=== PATIENT | male | born 1970 | race Caucasian/White ===

== ENCOUNTER 2025-06-30 16:09 | Inpatient (IN) | payer MEDICAID ==
[~2025-06-30] VITALS: Ht 182.9 cm; Wt 81.8 kg
--- NOTE | 2025-06-30 16:32 | Physician Documentation ---
History of Present Illness ~ Chief Complaint: ETOH Stated Complaint: TRANSFER Time Seen by MD: 16:12 HPI 54-year-old male presented to the ED via [facility] transfer for aphasia, ETOH withdrawal and reported seizures. Patient was evaluated at [facility] and liver enzymes were mostly normal troponin levels were negative and he was given phenobarbital.and scanned Patient also presented with flush blood shot eyes and was speaking gibberish and unable to identify plan himself or answer questions appropriately. He Was fully evaluated secondary to his initial presentation for stroke like symptoms, however in the neurologist believes the patient is likely having seizures or partial seizures related to AUD. Neurologist indicated that the patient meets criteria for EEG and MRI hence the transfer and higher level of care Medication Reconciliation Allergies: Coded Allergies: No Known Allergies (Unverified , 06/30/25) Review of Systems All Other Systems at this time: Reviewed and Negative ROS As stated above in the HPI, otherwise all systems are reviewed and negative. Physical Exam Vital Signs: Temperature: 97.9, Heart Rate: 118, Respiratory Rate: 22, BP: 156/94, Pulse Oximetry: 94, Weight: 81.820 Oxygen Flow Rate: 0 Physical Exam General: Alert, no apparent distress. Slurred speech HEENT: PERRL, EOMI, no injection, moist mucous membranes. Scleral in the left is injected Respiratory: Lungs clear, no respiratory distress. Cardiovascular: tachycsardic notral rhythm, no murmurs. Gastrointestinal: Soft, nontender, nondistended. Bowels sounds present. Neurologic: Oriented x4. Psychiatric: Normal mood and affect. Skin: Normal color, warm and dry. No edema, no ecchymosis. Face appears flushed Progress Results/Orders Results/Orders Orders - DELFINO ALAS BRAND EXECUTIVE * Vital Signs Routine* (06/30/25 16:23) * Activity * (06/30/25 16:23) * Implement/Maintain Seizure P (06/30/25 16:23) Environmental Studies Program Director (06/30/25 16:23) Pt Eval & Treat (06/30/25 16:23) CMP (07/01/25 03:00) CMP (07/02/25 03:00) CMP (07/03/25 03:00) CMP (07/04/25 03:00) CMP (07/05/25 03:00) Cbc/Diff (07/01/25 03:00) Cbc/Diff (07/02/25 03:00) Cbc/Diff (07/03/25 03:00) Cbc/Diff (07/04/25 03:00) Cbc/Diff (07/05/25 03:00) Pt Inr (07/01/25 03:00) Pt Inr (07/02/25 03:00) Pt Inr (07/03/25 03:00) Pt Inr (07/04/25 03:00) Pt Inr (07/05/25 03:00) PHOS (07/01/25 03:00) PHOS (07/02/25 03:00) PHOS (07/03/25 03:00) PHOS (07/04/25 03:00) PHOS (07/05/25 03:00) MG (07/01/25 03:00) MG (07/02/25 03:00) MG (07/03/25 03:00) MG (07/04/25 03:00) MG (07/05/25 03:00) Saline Lock (06/30/25 16:23) * Withdrawal Tx/Call Md If:* (06/30/25 16:23) Lipase (07/01/25 03:00) Lipase (07/02/25 03:00) Lipase (07/03/25 03:00) Lipase (07/04/25 03:00) Lipase (07/05/25 03:00) Direct Bili (07/01/25 03:00) Direct Bili (07/02/25 03:00) Direct Bili (07/03/25 03:00) Direct Bili (07/04/25 03:00) Direct Bili (07/05/25 03:00) * Verify Ciwa Scoring* (06/30/25 16:23) Chlordiazepoxide Capsule (Librium Capsul (06/30/25 20:00) Thiamine Inj. (Thiamine Inj.) (06/30/25 21:00) Folic Acid Inj. (Folic Acid Inj.) (06/30/25 16:25) Page Hospitalist (06/30/25 ) Phenobarbital (06/30/25 16:43) Completed Orders - EVETTE,DELFINO H BRAND EXECUTIVE Phenobarbital Inj (Phenobarbital Inj.) (06/30/25 16:25) Ammonia (06/30/25 16:44) Normal Saline 1000ml (0.9% Sodium Chlori (06/30/25 17:00) Medications Received in ER Medications (Trade) Dose Ordered Sig/Greta Route PRN Reason Start Time Stop Time Status Last Admin Dose Admin (folic acid inj.) 1 mg NOW IV 06/30/25 16:25 07/03/25 16:24 06/30/25 16:52 1 MG (0.9% sodium chloride (NS) 1000ml IV soln) 1,000 ml ONCE ONCE IVB 06/30/25 17:00 06/30/25 17:01 DC 06/30/25 17:58 1,000 ML (Valium inj) 10 mg Q2H PRN IV alcohol withdrawal 06/30/25 17:15 06/30/25 19:29 10 MG Vital Signs 06/30/25 06/30/25 06/30/25 16:18 16:33 16:34 Temp 97.9 97.9 Pulse 118 117 Resp 22 24 B/P (MAP) 156/94 155/87 (109) Pulse Ox 94 97 O2 Flow Rate 0 0 Laboratory Tests Test 06/30/25 16:56 Ammonia 14 Medical Decision Making Findings The patient meets criteria for further evaluation including EEG and MRI. I suspect his blood shot eyes or secondary to ongoing vomiting as he has been unable to keep anything down prior to his arrival at [facility]. Does have a history of traumatic brain injury and has had seizures related to alcohol use in the past. They were tonic-clonic in nature but he is not currently take taking any antiepileptics. States that the aphasia that started prior to arrival at [facility] ED 30 minutes prior to arrival The CT completed in [facility] indicated there was no signs of intracranial abnormalities. As discussed a neurology not think he was having a TIA or CVA. Did receive 130 mg of phenobarbital when he developed sudden onset aphasia prior to transfer he then received an additional 260 mg as the phenobarbital did not initially change his status Patient has been behaving appropriately although he does not appear impaired while in [facility] ED. Differential Dx:Considerations: Intoxication - ETOH, Intoxication - other drug, Sub. Abuse -continuous, Sub. Abuse-intermittent, Skull fracture, Fracture - other bone, Personality disorder, Closed head injury, Cervical spine injury, Abrasion, Confusion, Hematoma, Laceration, Foreign body, Dehydration, Encephalopathy, Hepatitis, Pancreatitis, Thiamine deficiency, Other Departure Disposition: 09 ADMITTED INPATIENT Impression: Primary Impression: Alcohol use disorder Additional Impression: Alcohol withdrawal syndrome Referrals: NO PRIMARY CARE PROVIDER (PCP) Signature Scribe Signature: u Attestation: Scribed for Delfino Alas Olive Grower by Delfino Garnett NP . 06/30/25 16:40 DELFINO ALAS NP Jun 30, 2025 16:31
[2025-06-30] MEDS: folic acid 1mg/0.2ml inj IV SCH (16:52)
[2025-06-30] MEDS ORDERED: mag hydrox/Alum hydrox/simeth 30ml oral suspension PO PRN (17:15)
[2025-06-30] MEDS ORDERED: magnesium sulf-water 2g/50mL 50 ML IV PRN (17:15)
[2025-06-30] MEDS ORDERED: magnesium hydroxide 30ml (MOM) UD suspension PO PRN (17:15)
[2025-06-30] MEDS ORDERED: potassium Cl 20 mEq SR tablet PO PRN (17:15)
[2025-06-30] MEDS ORDERED: potassium Cl 40MEQ/1/2NS 520ml 520 ML IV PRN (17:15)
[2025-06-30] MEDS ORDERED: magnesium sulf-water 4G/100mL 100 ML IV PRN (17:15)
[2025-06-30] MEDS ORDERED: ondansetron/PF 4mg/2ml inj IV PRN (17:15)
[2025-06-30] MEDS: normal saline 1000ML IV soln IVB ONE (17:58)
[2025-06-30] MEDS: diazepam inj 5 MG/ML inj. IV PRN (19:29)
[2025-06-30] MEDS: K and/or MAG REPLACEMENT MC SCH (20:00)
[2025-06-30] MEDS: docusate sod 100mg capsule PO SCH (20:00)
--- NOTE | 2025-06-30 21:09 | HISTORY AND PHYSICAL ---
History & Physical Providers to CC ~ History of Present Illness Reason for Admit\Complaint: Alcohol withdrawal with encephalopathy History of Present Illness This is a 54-year-old male transferred from [facility] with reported expressive aphasia and alcohol withdrawal symptoms. A neurology consult has a occurred and recommended an MRI and an EEG. When I evaluated the patient in the ED he was alert and oriented denies experiencing a seizure. The patient does have subconjunctival hemorrhage of the left eye however is able to move his eye without any restriction. The patient is admitted with alcohol withdrawal protocol. Seizure precautions are ordered Allergies: Coded Allergies: No Known Allergies (Unverified , 06/30/25) Past Medical History Past Medical History Denies any chronic health conditions Past Surgical History Surgical History Comment No prior surgeries Family History Family History: FH: diabetes mellitus FATHER Past Social History Social History Comment Endorses occasionally smoking cigarettes, drinks (5-6) 24 oz beers most every day denies any illicit drug use. Full code status ROS ROS Gen. No acute distress alert and oriented HEENT left subconjunctival hemorrhage without any restriction of movement of the eye Lungs clear to ascultation bilaterally, no wheezes rales or rhonchi appreciated Heart normal sinus rhythm no murmurs rubs or clicks noted Abdomen soft nontender bowel sounds are normoactive Lower extremities no clubbing cyanosis, nor edema appreciated bilaterally Exam Vitals: Vital Signs Date Time Temp Pulse Resp B/P (MAP) Pulse Ox O2 Delivery O2 Flow Rate FiO2 06/30/25 21:01 97.9 94 13 141/91 (108) 99 0 Advance Care Planning Advanced Care plannin - 30 Minutes Problems: (1) Alcohol use disorder Additional Plan # toxic encephalopathy # expressive aphasia Likely secondary to alcohol intoxication Did follow the recommendations of Neurology from [facility] and a head MRI is ordered # alcohol use disorder # impending DTs EEGs ordered per Neurology recommendations On alcohol withdrawal protocol Telemetry monitoring is ordered #DVT prophylaxis: SCDs SQ Lovenox I spent a total of 16 minutes on reviewing various resuscitative measures/ ACP with the patient at the time of admission. The patient has decided on full code status Date of Service: Jun 30, 2025 Billing Provider: DANNY FITZPATRICK DO Common Visit Codes: [id number] INP/OBS CARE (HIGH) Secondary Visit Codes: 91244-[id number] CARE PLAN 30 MINUTES DANNY FITZPATRICK DO Jun 30, 2025 21:09
[2025-06-30 21:16] LABS: MEAN PLATELET VOLUME 8.3 FL (7.4-10.4); RED CELL DISTRIBUTION WIDTH 15.4 % (11.5-14.5)
[2025-06-30 21:29] LABS: CREATININE 0.92 MG/DL (0.60-1.10); TOTAL CARBON DIOXIDE 27.9 MMOL/L (24-32); eCRCL 101 ML/MIN; eGFR 86 ML/MIN
[2025-06-30] MEDS: enoxaparin 40mg/0.4ml syringe SQ SCH (21:40)
[2025-06-30] MEDS: thiamine 100mg/ml 2ml inj. IV SCH (21:41)
[2025-06-30 22:20] VITALS: BP 135/75; PULSE 91; RESP 14; TEMP 98.4; O2SAT 95
[2025-07-01] MEDS: potassium Cl 20 mEq SR tablet PO PRN (01:02)
[2025-07-01] MEDS ORDERED: NO HOME MEDS (03:23)
[2025-07-01 05:33] LABS: MEAN PLATELET VOLUME 9.1 FL (7.4-10.4); RED CELL DISTRIBUTION WIDTH 15.3 % (11.5-14.5)
[2025-07-01 05:36] LABS: INR 1.0 INR
[2025-07-01 05:40] LABS: CREATININE 0.93 MG/DL (0.60-1.10); PHOSPHORUS 2.8 MG/DL (2.3-4.5); TOTAL CARBON DIOXIDE 27.3 MMOL/L (24-32); eCRCL 100 ML/MIN; eGFR 85 ML/MIN
[2025-07-01 06:00] VITALS: BP 146/85; PULSE 96; RESP 18; TEMP 97.4; O2SAT 99
--- NOTE | 2025-07-01 13:37 | PROGRESS NOTE ---
Daily Progress Note Providers to CC ~ Antibiotic Timeout Antibiotic Ordered?: No Subjective No acute events overnight. Patient examined at bedside. No new complaints, not in acute distress. Patient denies chest pain, sob, palpitations, abdominal pain, n/v/d. Vss, labs notable for elevated t.bili and AST with wnl ALT and ALP. Objective Vital Signs Date Time Temp Pulse Resp B/P (MAP) Pulse Ox O2 Delivery O2 Flow Rate FiO2 07/01/25 08:19 24 07/01/25 06:00 97.4 96 146/85 (105) 99 Room Air 06/30/25 21:01 0 Result Diagram: 07/01/25 0144 07/01/25 0446 Coagulation Studies Laboratory Tests Test 07/01/25 04:46 Prothrombin Time 10.7 SECONDS (9.0-12.0) INR International Normalized Ratio 1.0 INR Coagulation Comments Problem\Assessment\Plan Problems/Diagnosis: (1) Alcohol use disorder Assessment & Plan Alcohol withdrawal Alcoholic hepatitis Chronic alcoholism Toxic encephalopathy Expressive aphasia Alcohol use disorder -INR 1.0, lipase wnl, ALP wnl -tapered dose Librium, thiamine, folic acid, seizure precautions, follow CT DVT/VTE Prophylaxis: Lovenox Code Status: Full Code Date of Service: Jul 01, 2025 Billing Provider: ALFREDO ALVARENGA Common Visit Codes: [id number] INP/OBS CARE(HIGH) ALFREDO ALVARENGA Jul 01, 2025 13:37
[2025-07-01] MEDS ORDERED: iohexol 300mg/ml 100ml inj. ONE (14:19)
--- NOTE | 2025-07-01 14:53 | RADIOLOGY REPORT ---
Exam: CT CT ABDOMEN PELVIS W/ IV CONTRAST History: transaminitis, elevated t.bili, alcohol abuse COMPARISON: None Technique: Multidetector spiral CT of the abdomen and pelvis was performed from lung bases to pubic symphysis. Intravenous contrast was administered during this examination. Portal venous imaging was obtained. Axial, coronal and sagittal multiplanar reformats were performed by the technologist on a separate workstation. Radiation Dose : 1. Abdomen/Pelvis: CTDIvol 12 mGy, DLP 689 mGy*cm. Findings: Lung Bases: Trace bilateral pleural effusions. Cardiomegaly. Liver: Hepatic steatosis. Hepatomegaly. Gallbladder and Biliary Tree: Unremarkable. Spleen: Unremarkable. Pancreas: The pancreas is normal in appearance without focal lesions or abnormal enhancement. Adrenal Glands: Unremarkable. Kidneys: No hydronephrosis. Bladder: Unremarkable. Bowel: The stomach is grossly normal in appearance. Small bowel and colon are normal in caliber and distribution. Mild colonic bowel wall thickening of the rectosigmoid colon and distal descending colon. The appendix is unremarkable. Ascites: Absent. Lymphadenopathy: No mesenteric, retroperitoneal or periportal lymphadenopathy. Abdominal Wall and Mesentery: Unremarkable. Vasculature: Vascular calcifications of the aorta. The visualized abdominal aorta is normal in size and caliber. Abdominal and pelvic vessels demonstrate normal enhancement. Pelvic Organs: Unremarkable. Musculoskeletal: No aggressive focal bony lesions, acute fractures or dislocation. IMPRESSION: Mild colonic bowel wall thickening of the rectosigmoid colon and distal descending colon. Findings may be related to infectious or inflammatory colitis. Hepatic steatosis and hepatomegaly. Trace bilateral pleural effusions. Radiation optimization: All CT scans at this facility use at least one of these dose optimization techniques: automated exposure control mA and/or kV adjustment per patient size (includes targeted exams where dose is matched to clinical indication) or iterative reconstruction.
[2025-07-01] MEDS: normal saline 1000ml 1,000 ML IV SCH (16:08)
[2025-07-01 18:00] VITALS: BP 118/72; PULSE 95; RESP 20; TEMP 98.5; O2SAT 100
[2025-07-01] MEDS ORDERED: heparin, porcine 5000 units/ml vial SQ SCH (20:00)
--- NOTE | 2025-07-01 21:29 | PROCEDURE NOTE ---
Procedure Note Providers to CC ~ Description: [place] EEG Note # Demographics Type of EEG Read: - Routine EEG - video Patient Location: Inpatient First Name: Ravi Last Name: Jake Date of : 1970 Age: 54 Gender: Male Facility: [facility] Time of Initial Page (): 07/01/2025 10:25 First Contact with Site (): 07/01/2025 10:25 # EEG Interpretation Start Time of EEG Read (): 07/01/2025 10:40 Stop Time of EEG Read (): 07/01/2025 11:00 Duration: 0h 20m Technical Details: - The EEG electrodes were placed using the standard International 10-20 system of electrode placement. Video and an accessory EKG lead were used during the course of this study. - This study was recorded using the [email or web address] EEG software Indication: - altered mental status # Description Photic Stimulation: NOT Performed Hyperventilation: NOT performed Phases Captured: - awake Symmetry: symmetric Posterior Dominant Rhythm: poorly defined Predominant Frequencies: - delta (2-3 Hz) - occasional (1-9%) Superimposed Frequencies: - beta (>15 Hz) - continuous (>90%) Amplitude: normal Reactivity: yes Variability: yes Continuity: continuous # Abnormalities Epileptiform Abnormalities: - NOT present Focal Slowing: no Seizure: - NOT present # Impression Impression: abnormal Excess Beta Diffuse Slowing # Clinical Correlation Clinical Correlation: Excess beta is a non-specific finding but may be seen in the setting of Benzodiazepine or Barbiturate use Diffuse slowing is non-specific and may be seen in the setting of diffuse cerebral dysfunction; such as toxic/metabolic/infectious encephalopathy or heavily sedating medication use. # Logistics Telemedicine: remote EEG review: EEG reviewed remotely # Demographics First Name: Ravi Last Name: Jake Facility: [facility] WAYNE MEDRANO MD Jul 01, 2025 21:29
[2025-07-01 22:00] VITALS: BP 139/88; PULSE 87; RESP 14; TEMP 97.4; O2SAT 95
[2025-07-02 01:02] VITALS: BP 118/72; PULSE 95; RESP 20; TEMP 98.5; O2SAT 100
[2025-07-02 05:01] LABS: MEAN PLATELET VOLUME 9.1 FL (7.4-10.4); RED CELL DISTRIBUTION WIDTH 14.9 % (11.5-14.5)
[2025-07-02 05:08] LABS: INR 1.0 INR
[2025-07-02 05:15] LABS: CREATININE 0.86 MG/DL (0.60-1.10); PHOSPHORUS 2.9 MG/DL (2.3-4.5); TOTAL CARBON DIOXIDE 24.8 MMOL/L (24-32); eCRCL 108 ML/MIN; eGFR > 90 ML/MIN
[2025-07-02 06:00] VITALS: BP 124/75; PULSE 82; RESP 16; TEMP 97.9; O2SAT 94
[2025-07-02] MEDS ORDERED: CHLO25CA10 PO (06:44)
[2025-07-02] MEDS ORDERED: THIA50TA10 PO (06:44)
--- NOTE | 2025-07-02 11:57 | DISCHARGE SUMMARY ---
Discharge Summary Providers to CC ~ Discharge Summary Admission Diagnosis: DTs, alcohol hepatitis, toxic encephalopathy Hospital Course DATE OF ADMISSION: 06/30/25 DATE OF DISCHARGE: 07/02/25 Discharge Diagnosis\\Comment: Alcohol withdrawal Alcoholic hepatitis Hypokalemia Chronic alcoholism Toxic encephalopathy Expressive aphasia Alcohol use disorder Operations\\Procedures: EEG Consultants: None Complications: None Condition on DC: Stable Discharge Summary: History of Present Illness From H&P: "This is a 54-year-old male transferred from [facility] with reported expressive aphasia and alcohol withdrawal symptoms. A neurology consult has a occurred and recommended an MRI and an EEG. When I evaluated the patient in the ED he was alert and oriented denies experiencing a seizure. The patient does have subconjunctival hemorrhage of the left eye however is able to move his eye without any restriction. The patient is admitted with alcohol withdrawal protocol. Seizure precautions are ordered." Hospital Course Diagnostic findings were notable for transaminitis, CT abdomen/pelvis revealing hepatic steatosis and hepatomegaly. Pertinent negative findings were EEG negative for seizures, INR 1.0, wnl lipase and alkaline phosphatase, wnl bicarb, wnl ammonia. Patient was placed on seizure precautions and was treated with taper dose Librium, thiamine, folic acid, intravenous fluids. With the start of treatment, transaminitis resolving and mentation is back to is baseline. Aphasia resolved. Due to ankle bracelet, MRI head was not pursued at this time. Patient did not experience further complications throughout the entire hospital stay and made a good recovery. Patient did not experience seizure activity during the entire hospital stay. Patient was seen and examined on the day of discharge. On day of discharge, vss and labs unremarkable.All labs, diagnostic workups, discharge plan discussed with patient in details during visit before discharge. All questions and concerns answered to the best of my professional knowledge. Patient is to be discharged to home to self and to follow up with PCP within 2 weeks. Physical Exam General: A&Ox 3, NAD HEENT: Normocephalic, PERRLA Neck: Supple, trachea midline, no JVD Chest: Clear to auscultation bilaterally Cardiovascular: RRR, S1&S2 GI: Soft and nontender Extremities: No cyanosis/clubbing/or edema CAMPUS MONITOR: CN II-XII intact, no focal deficits Musculoskeletal: No paraspinal muscle tenderness, no muscle spasm Skin: Warm and intact *Problems/Diagnosis: (1) Alcohol use disorder Status: Chronic (2) Alcohol withdrawal syndrome Status: Acute Total Time Spent on D/C: > 30 Minutes Date of Service: Jul 02, 2025 Billing Provider: ALFREDO ALVARENGA Common Visit Codes: 08521-SDN/OBS DISCH DAY >30min ALFREDO ALVARENGA Jul 02, 2025 11:56
== END 2025-07-02 10:49 | disposition home or self-care (01) | DRG 52 ==
LOC: ER 16:11 → ED HOLD 17:55 → ORTHO 4S 22:15
PROVIDERS: ADMIT Family Medicine; ATTEND Family Medicine
PROC: 4A10X4Z Monitoring of Central Nervous Electrical Activity, External Approach (ICD-10-PCS; principal; 2025-07-01)
PROC: BW211ZZ Computerized Tomography (CT Scan) of Abdomen and Pelvis using Low Osmolar Contrast (ICD-10-PCS; 2025-07-01)
DX: G92.9 Unspecified toxic encephalopathy (principal); R47.01 Aphasia; F10.239 Alcohol dependence with withdrawal, unspecified; F10.229 Alcohol dependence with intoxication, unspecified; H11.32 Conjunctival hemorrhage, left eye; K70.10 Alcoholic hepatitis without ascites; E87.6 Hypokalemia; K76.0 Fatty (change of) liver, not elsewhere classified; Z83.3 Family history of diabetes mellitus; Z87.891 Personal history of nicotine dependence
CPT/HCPCS: 36415; 74177; 80053; 82140; 82248; 83690; 83735; 84100; 85025; 85610; 87081; 95816; 96361; 96372; 96374; 96375; 99285; G0378; J1650; J3360; J3411; J3490; J7030; Q9967